=== PATIENT | female | born 1960 | race Caucasian/White ===

== ENCOUNTER 2018-10-01 05:40 | Day surgery (SDC) | payer MEDICARE, BC ==
[2018-10-01] MEDS ORDERED: EPHEDRINE SULFATE 50 MG/ML ML IV ONE (05:41)
[2018-10-01] MEDS ORDERED: BUPIVACAINE LIPOSOME/PF 133MG/10ML VIAL IV ONE (05:41)
[2018-10-01] MEDS ORDERED: ONDANSETRON HCL IV 4 MG/2 ML VIAL IVP ONE (05:41)
[2018-10-01] MEDS ORDERED: BUPIVACAINE 0.25% MPF 30ML VIAL IVP ONE (05:41)
[2018-10-01] MEDS ORDERED: ESMOLOL HCL 100 MG/10 ML ML IVP ONE (05:41)
[2018-10-01] MEDS ORDERED: FENTANYL PF 100MCG/2ML VIAL IV ONE (05:41)
[2018-10-01] MEDS ORDERED: MIDAZOLAM HCL 2MG/2ML VIAL IV ONE (05:41)
[2018-10-01] MEDS ORDERED: LIDOCAINE 2% MDV (20MG/ML) 20ML VIAL IV ONE (05:41)
[2018-10-01] MEDS ORDERED: PROPOFOL 10 MG/ML VIAL IV ONE (05:41)
[2018-10-01] MEDS ORDERED: DEXAMETHASONE 4 MG/ML 1ML VIAL IVP ONE ×2 (05:41)
[2018-10-01] MEDS ORDERED: SEVOFLURANE 250 ML INH ONE (05:41)
[2018-10-01 05:51] LABS: HEMOGLOBIN 13.1 gm/dl (11.6-16.0); MEAN CELL VOLUME 102.6 fl (81-97); MEAN CORPUSCULAR HEMOGLOBIN 34.5 pg (27-33); MEAN CORPUSCULAR HGB CONC 33.6 g/dl (32-36); MEAN PLATELET VOLUME 7.8 fl (7.4-10.4); PLATELET COUNT 245 K/uL (130-400); RED CELL DISTRIBUTION WIDTH 13.5 % (11.5-14.5)
[2018-10-01] MEDS ORDERED: CLINDAMYCIN 600MG/50ML PREMIX 600 MG/50 ML BAG IVPB ONE (06:00)
[2018-10-01 06:07] LABS: BLOOD UREA NITROGEN 14 mg/dL (8-23); CREATININE 0.6 mg/dL (0.5-0.9); EST GLOMERULAR FILTRATION RATE > 60 mL/min; GLUCOSE,RANDOM 131 mg/dL (74-109)
[2018-10-01] MEDS ORDERED: EPINEPHRINE 1 MG/1 ML IM ONE (08:32)
[2018-10-01] MEDS ORDERED: RINGERS SOLUTION,LACTATED 500 ML IV ONE (08:39)
--- NOTE | 2018-10-02 12:11 | Operative Note ---
DATE OF SERVICE: 10/01/2018. DATE OF SURGERY: 10/01/2018. PREOPERATIVE DIAGNOSES: 1. Tear of the right rotator cuff. 2. Tear of the biceps tendon, right shoulder. 3. Impingement syndrome, right shoulder. OPERATIVE PROCEDURE: 1. Arthroscopic repair of the right rotator cuff. 2. Arthroscopic subacromial decompression and acromioplasty of the right shoulder. 3. Arthroscopic debridement, biceps tendon, right shoulder. SURGEON: Bradford Carrillo DO. REFERRING PHYSICIAN: Tammy Dupont MD. PROCEDURE: This 60-year-old female was taken to the operating room and placed in the supine position on the operating room table. General anesthesia was induced. She was then placed in the beach chair position with all bony prominences well padded and the head well secured. The right shoulder prepped with Hibiclens and draped in the usual sterile fashion. A posterior portal was established in the right shoulder for initial evaluation of the joint, and we identified a stump of the biceps tendon. Superiorly, the glenohumeral cartilage appeared to be essentially normal, but we did see some cartilage fragments inferiorly in the pouch. These were evacuated from the joint. There was evidence of partial tearing of subscapularis tendon, but the glenohumeral ligaments appeared to be intact. I did not see any evidence of instability. The patient's rotator cuff supraspinatus tendon was completely disrupted. We debrided the stump of the biceps tendon. The lateral and anterior portals were established. The scope was placed in the subacromial space. Thorough subacromial decompression acromioplasty was performed. This gave us excellent visualization of the rotator cuff tear, which was debrided. This was a U-shaped tear. The quality of the tendon would be estimated as acceptable. There she did not have an excellent quality tendon. The tuberosity was debrided to healthy-appearing bone. We felt that we could repair this using a modification of the SpeedBridge technique by [employer]. Subsequently, 2 4.75 swivel lock anchors were placed adjacent to the articular cartilage, 1 at the anterior and 1 at the posterior margins of the tear. These were then passed through the rotator cuff, and we elected to place an additional #2 Fiberwire in a horizontal mattress-type fashion for additional support of this tear. This was placed in between the 2 sutures attached to the anchors. Subsequently, a limb of each suture was then grasped and placed through a 3rd swivel-locked anchor, which was 5.5 mm, and this was placed inferior to the anterior anchor. This was then drawn tight, and the anchor was impaled. Subsequently, the remaining 3 tails of suture were placed through a 4th swivel-locked anchor, which was 5.5 mm, and this was placed inferior to the posterior anchor. Traction placed on these sutures, as well, and the anchor impaled. The repair appeared to be satisfactory, and the wound was irrigated with lactated Ringer solution and suctioned, and the portals were closed with 4-0 nylon suture. Sterile dressings with an UltraSling were applied, and the patient was taken to the recovery room in satisfactory condition. GROSS PATHOLOGY: This patient demonstrated evidence of a tear of the supraspinatus, and part of the infraspinatus appeared to be involved, as well. The subscap was partially torn. Full thickness defect of the biceps tendon also identified, and loose bodies present in the inferior joint, which were suctioned from the joint. MTDD
== END 2018-10-01 10:50 | disposition home or self-care (01) ==
LOC: SUR 05:40
PROVIDERS: ATTEND Orthopaedic Surgery
DX: M75.101 Unspecified rotator cuff tear or rupture of right shoulder, not specified as traumatic (principal); S46.211A Strain of muscle, fascia and tendon of other parts of biceps, right arm, initial encounter; M75.41 Impingement syndrome of right shoulder; E11.9 Type 2 diabetes mellitus without complications; K21.9 Gastro-esophageal reflux disease without esophagitis; F17.210 Nicotine dependence, cigarettes, uncomplicated
CPT/HCPCS: 29827; 29826; 29822; 01630; 64415; 80048; 85027; 76942; J2405; J3010; C9290; J0171; J7120

== ENCOUNTER 2019-05-23 11:56 | Emergency (ER) | payer MEDICARE, BC ==
--- NOTE | 2019-05-23 12:24 | Emergency Department Record ---
History of Present Illness - General Chief complaint: Nausea, Vomiting, Diarrhea Stated complaint: REALLY BAD HEARTBURN Time Seen by Provider: 05/23/19 12:22 Source: Patient, Family Mode of Arrival: Ambulatory Limitations: No limitations - History of Present Illness Initial comments: 58 yo female presents with upper abdominal pain that is nearly constant since . She reports she has pain that worsens every time she eats food. She has had a history of RNY gastric bypass. She is swallowing the food without any choking or difficulty. No fever. No pain to her back. No exertion related pain. No history of CAD. The discomfort can be felt more laying down. No vomiting. No diarrhea. No blood in stool. MD complaint: Abdominal pain, Nausea -: Days(s) (4) Description of Vomiting: Other (No vomiting) Description of Diarrhea: Other (No diarrhea) Location: Epigastric Radiation: Chest, Epigastric Quality: Aching Consistency: Constant Improves with: Other (Improves with not eating) Worsens with: Eating Context: Other Associated Symptoms: Denies other symptoms - Related Data Home Medications Medication Instructions Recorded Confirmed Last Taken Acarbose 200 mg PO BID 05/23/19 05/23/19 05/23/19 Alendronate Sodium 70 mg PO WEEKLY 05/23/19 05/23/19 05/16/19 Atorvastatin Calcium [Lipitor] 20 mg PO DAILY 05/23/19 05/23/19 05/22/19 Disulfiram [Antabuse] 250 mg PO BID 05/23/19 05/23/19 05/23/19 Gabapentin 300 mg PO TID 05/23/19 05/23/19 05/23/19 Lamotrigine 150 mg PO BID 05/23/19 05/23/19 05/23/19 Multivitamin [One-Daily 1 each PO DAILY 05/23/19 05/23/19 05/23/19 Multi-Vitamin] Octreotide Acetate 50Mcg/ml 0.3 ml SQ TID 05/23/19 05/23/19 05/23/19 [Octreotide Acetate] Omeprazole [Prilosec] 20 mg PO DAILY 05/23/19 05/23/19 05/23/19 Sertraline HCl [Zoloft] 200 mg PO DAILY 05/23/19 05/23/19 05/23/19 Vitamin B Complex 1 each PO DAILY 05/23/19 05/23/19 05/23/19 Allergies Allergy/AdvReac Type Severity Reaction Status Date / Time Penicillins Allergy PT UNSURE Verified 05/23/19 12:06 OF REACTION Review of Systems Constitutional: Denies: Chills, Fever, Malaise, Weakness Eyes: Denies: Eye discharge ENT: Denies: Congestion, Throat pain Respiratory: Denies: Cough, Dyspnea, Hemoptysis Cardiovascular: Denies: Chest pain, Edema, Palpitations, Syncope Endocrine: Denies: Fatigue, Polydipsia, Polyuria Gastrointestinal: Reports: As per HPI, Abdominal pain, Nausea. Denies: Diarrhea, Vomiting Genitourinary: Denies: Dysuria, Urgency Musculoskeletal: Denies: Arthralgia, Back pain, Myalgia Skin: Denies: Bruising, Change in color, Rash Neurological: Denies: Headache Psychiatric: Denies: Anxiety Hematological/Lymphatic: Denies: Easy bleeding, Easy bruising Past Medical History - SOCIAL HISTORY Smoking Status: Current every day smoker - RESPIRATORY Hx Respiratory Disorders: No - CARDIOVASCULAR Hx Cardio Disorders: No - NEURO Hx Neuro Disorders: No - GI Hx GI Disorders: Yes Hx Reflux: Yes (on meds good control) Comment:: bariatric surgery "pao-[id number]" - Hx Genitourinary Disorders: No - ENDOCRINE Hx Endocrine Disorders: Yes Hx Diabetes: Yes (on meds good control) Hx Thyroid Disease: No - MUSCULOSKELETAL Hx Musculoskeletal Disorders: No - PSYCH Hx Psych Problems: No Hx Depression: Yes (on meds good control) - HEMATOLOGY/ONCOLOGY Hx Hematology/Oncology Disorders: No Family Medical History Hx Cancer: Mother Physical Exam - General General Appearance: Alert, Oriented x3, Cooperative, No acute distress Limitations: No limitations - Head Head exam: Atraumatic, Normal inspection - Eye Eye exam: Normal appearance, PERRL. negative: Conjunctival injection, Scleral icterus - ENT ENT exam: Normal exam, Mucous membranes moist Ear exam: Normal external inspection Nasal Exam: Normal inspection Mouth exam: Normal external inspection - Neck Neck exam: Normal inspection - Respiratory Respiratory exam: Normal lung sounds bilaterally. negative: Respiratory distress, Rhonchi, Stridor, Wheezes - Cardiovascular Cardiovascular Exam: Regular rate, Normal rhythm, Normal heart sounds - GI/Abdominal GI/Abdominal exam: Soft. negative: Distended, Guarding, Rebound, Rigid, Tenderness - Rectal Rectal exam: Deferred - exam: Deferred - Extremities Extremities exam: negative: Calf tenderness, Pedal edema, Tenderness - Back Back exam: Denies: CVA tenderness (R), CVA tenderness (L) - Neurological Neurological exam: Alert, Oriented X3 - Psychiatric Psychiatric exam: Normal affect, Normal mood - Skin Skin exam: Dry, Intact, Normal color, Warm Course - Reevaluation(s) Reevaluation #1: 05/23/19 12:23 EKG #1: 12:10 Rate: 77 Rhythm: sinus Rancocas: left Intervals: CW RBBB ST segments: No acute abnormality 05/23/19 13:08 The CBC was reviewed The Hgb is 10.8 05/23/19 14:22 The Troponin is negative after 4 days of constant atypical epigastric pain The patient had instant relief with her GI cocktail. "It was like a miracle" she stated Her pain is completely gone at this time. 05/23/19 14:[address] scan was reviewed There is mild thickening of the anastomosis of the afferent loop and jejunum, also GE junction thickening. No bowel obstruction. 05/23/19 14:55 [facility] [place] mammal control agent paged to discuss follow up 05/23/19 15:07 I ANGELY Hogan of GI. Given the pain, anemia and abnormal CT the patient will be transferred to [facility] [place] for admission and consultation. 05/23/19 15:14 Dr Mercer accepts the patient for transfer Medical Decision Making - Lab Data Result diagrams: 05/23/19 12:47 05/23/19 12:47 Disposition Disposition: Transfer Clinical Impression: Epigastric pain, Anemia Disposition: Home, Self-Care Transfer To: [facility] [place] Reason For Transfer: GI bleed, Accepting Physician: Sylvie Time Discussed w/Accepting Physician: 15:13 Condition: (1) Good Forms: Patient Portal Access Time of Disposition: 15:08 Quality - Quality Measures Quality Measures: N/A - Blood Pressure Screening Does Patient Have Any of the Following: No Blood Pressure Classification: Hypertensive Reading Systolic Measurement: 140 Diastolic Measurement: 67 Screening for High Blood Pressure: < Pre-Hypertensive BP, F/U Documented > [G8950] Pre-Hypertensive Follow-up Interventions: Referral to alternative/primary care provider.
[2019-05-23] MEDS ORDERED: MAGNESIUM HYDROXIDE/AL HYDROX 30 ML, LIDOCAINE VISC 2% 15ML 15 ML PO ONE ×2 (12:43)
[2019-05-23] MEDS ORDERED: 0.9 % SODIUM CHLORIDE 1,000 ML BAG IV ONE (12:43)
[2019-05-23 13:02] LABS: ABSOLUTE NEUTROPHIL COUNT 8.42; BASO % 0.6 % (0-6); EOS % 6.3 % (0-6); GRAN % 66.7 % (47-80); HEMATOCRIT 34.2 % (35.0-47.0); HEMOGLOBIN 10.8 gm/dl (11.6-16.0); LYMPH % 21.6 % (16-45); MEAN CELL VOLUME 105.6 fl (81-97); MEAN CORPUSCULAR HEMOGLOBIN 33.3 pg (27-33); MEAN CORPUSCULAR HGB CONC 31.6 g/dl (32-36); MEAN PLATELET VOLUME 8.6 fl (7.4-10.4); MONO % 4.8 % (0-9); PLATELET COUNT 303 K/uL (130-400); RED BLOOD COUNT 3.24 M/uL (3.80-5.40); RED CELL DISTRIBUTION WIDTH 14.6 % (11.5-14.5); WHITE BLOOD COUNT W/O DIFF 12.6 K/uL (4.2-12.2)
[2019-05-23 13:29] LABS: BLOOD UREA NITROGEN 25 mg/dL (8-23); CREATININE 0.6 mg/dL (0.5-0.9); EST GLOMERULAR FILTRATION RATE > 60 mL/min
[2019-05-23 13:30] LABS: LIPASE 42 U/L (13-60); TOTAL PROTEIN 6.3 g/dL (6.6-8.7)
[2019-05-23 13:32] LABS: GLUCOSE,RANDOM 153 mg/dL (74-109)
[2019-05-23 13:35] LABS: ALB/GLOB RATIO 1.5 (1.1-1.8); ALBUMIN 3.8 g/dL (4.0-5.0); ALKALINE PHOSPHATASE 137 U/L (35-104); ALT/SGPT 11 U/L (<33); AST/SGOT 16 U/L (10.0-35.0)
--- NOTE | 2019-05-23 14:34 | CT SCAN REPORT ---
EXAMINATION: CT Abdomen and Pelvis with IV Contrast EXAM DATE: 05/23/2019 2:15 PM TECHNIQUE: CT imaging of the abdomen and pelvis was performed with intravenous contrast. Coronal and sagittal images were reconstructed. IV Contrast: The amount and type of contrast are recorded in the medical record. INDICATION: upper abd pain with eating, hx of RNY gastric byp Technologist note: Bypass surgery for peptic ulcerative disease. COMPARISON: None available ENCOUNTER: Not applicable CT ABDOMEN AND PELVIS FINDINGS: Lung Bases: Included extent of the lung bases are clear. Hepatobiliary: Liver is mildly enlarged, 19 cm. No liver lesions. The gallbladder is absent. There is no biliary dilatation. Pancreas: The pancreas is normal. Spleen: The spleen is not enlarged. Adrenals: Mild thickening of the adrenal glands. Kidneys, Ureters, & Bladder: Several tiny calyceal calculi in the left kidney measure about 2 mm. 2 m m calculus in the lower right kidney. No ureteral calculi or hydronephrosis. Urinary bladder is unrem arkable. Gastrointestinal: Postsurgical changes from Berry-en-Y procedure. The remnant stomach has a small amou nt of fluid in it. Oral contrast is in the small stomach. There is thickening of the gastroesophageal junction. There is also wall thickening at the anastomosis of the afferent loop, see axial image 75 series 2 and coronal image 46. Sigmoid colon is redundant. Large amount of stool in the cecum and sig moid colon. Reproductive Organs: Uterus and ovaries have normal size. Lymphatic System: There is no adenopathy within the abdomen or pelvis. Vasculature: Normal caliber abdominal aorta. Mesenteric arteries are widely patent and has normal co nfiguration. Peritoneum: No free fluid, free air, or inflammation. No mesenteric edema. Abdominal Wall & Musculoskeletal: Mild degenerative changes of spine. IMPRESSION: There is mild thickening of the anastomosis of the afferent loop and jejunum. There is also thickenin g of the gastroesophageal junction. No evidence of bowel obstruction or internal hernia. Small bilateral nonobstructive renal calculi. Mild hepatomegaly. Dictated by: Uyen Barajas MD on 05/23/2019 2:18 PM. .
[2019-05-23] MEDS ORDERED: PANTOPRAZOLE SODIUM IV 40 MG VIAL IVP ONE (15:04)
[2019-05-23] MEDS ORDERED: NICOTINE 21 MG/24 HOUR PATCH TD STA (15:13)
== END 2019-05-23 16:18 | disposition home or self-care (01) ==
LOC: ER 11:56
DX: R10.13 Epigastric pain (principal); D64.9 Anemia, unspecified; R11.2 Nausea with vomiting, unspecified; R19.7 Diarrhea, unspecified; F17.210 Nicotine dependence, cigarettes, uncomplicated; Z98.84 Bariatric surgery status
CPT/HCPCS: 99285 ×2; 96365; 83690; 85025; 80053; 84484; 74177; 93005; 93010; Q9967; C9113; J7030